=== PATIENT | male | born 1965 | race Two or more races ===

== ENCOUNTER 2025-09-21 00:16 | Inpatient (IN) | payer OTHER ==
[2025-09-21] MEDS ORDERED: Ondansetron PF 4 MG/2 ML Vial IVP PRN (01:59)
[2025-09-21] MEDS ORDERED: Dextrose 50% Abboject 50 ML SYRINGE SLOW IVP PRN (02:08)
[2025-09-21] MEDS ORDERED: Glucagon 1 MG/ML KIT IM PRN (02:08)
[2025-09-21 02:22] VITALS: BMI 42.3
[2025-09-21 03:36] LABS: #Basophils Less than 0.03 10x3/uL (0.0-0.2); #Eosinophils Less than 0.03 10x3/uL (0.0-0.7); #Monocytes 0.90 10x3/uL (0.11-0.59); #Neutrophils 7.17 10x3/uL (1.40-6.50); %Basophils 0.2 % (0.0-1.0); %Eosinophils 0.2 % (0.0-10.0); %Lymphocytes 16.7 % (21.0-51.0); %Monocytes 9.2 % (0.0-10.0); %Neutrophils 73.6 % (42.0-75.0); Hematocrit 40.0 % (42.0-52.0); Hemoglobin 13.2 g/dL (14.0-18.0); Mean Corpuscular Hemoglobin 29.8 pg (27.0-31.0); Mean Corpuscular Volume 90.3 fL (78.0-98.0); Platelet Count 185 10x3/uL (130-400); Red Blood Cell (RBC) Count 4.43 mill/uL (4.70-6.10); White Blood Cell (WBC) Count 9.75 10x3/uL (4.8-10.8)
[2025-09-21 03:56] LABS: ALT (SGPT) 151 U/L (Less than 45); AST (SGOT) 190 U/L (11-34); Albumin 3.6 g/dL (3.1-4.5); Alkaline Phosphatase 55 U/L (40-110); Anion Gap 15 mmol/L (10-20); BUN (Urea Nitrogen) 24 mg/dL (8.4-25.7); Bilirubin, Total 1.1 mg/dL (0.3-1.2); Calc. Creatinine Clearance 100 mL/min (70-130); Calcium 8.7 mg/dL (7.8-10.44); Carbon Dioxide 26 mmol/L (22-29); Chloride 104 mmol/L (98-107); Globulin 3.1 g/dL (2.4-3.5); Glucose 111 mg/dL (70-105); Potassium 4.2 mmol/L (3.5-5.1); Sodium 141 mmol/L (136-145)
[2025-09-21 05:08] LABS: Lipase 2082.0 U/L (8-78)
[2025-09-21 05:10] LABS: Cardiac Risk 3.1 (Less than 4.5); Cholesterol 138.0 mg/dl (< 200 Desired); HDL Cholesterol 45.0 mg/dL (>60 Neg Risk); LDL Cholesterol, Calculated 80.0 mg/dL; Triglycerides 64.0 mg/dL (Less than 150)
[2025-09-21 08:41] LABS: Hep A IgM AB NONREACTIVE (NonReactive); Hep A IgM S/CO 0.18 S/CO (0-0.79); Hep B Core IgM Index 0.08 S/CO (0-0.79); Hep B Surf Ag NONREACTIVE S/CO (NonReactive); Hep C IgG Ab Reflex HepC Qnt S/CO (NonReactive); Hep C Index 11.55 S/CO (0-0.79)
[2025-09-21] MEDS: Clotrimazole 1 % Cream 30 GM TUBE TOP SCH (09:20)
[2025-09-21] MEDS: Enoxaparin 40 MG (0.4 mL) SYRINGE SC SCH (09:22)
[2025-09-21] MEDS: Famotidine/PF 20 mg/2ml Vial SLOW IVP SCH (09:22)
[2025-09-21] MEDS: Famotidine 20 MG TAB PO SCH (09:22)
[2025-09-21] MEDS: Polyvinyl Alcohol 1.4%/Povidone 0.6% Opth Drops EA EYE SCH (09:22)
[2025-09-21] MEDS: Acetaminophen 325 MG TAB PO PRN (15:20)
[2025-09-21] MEDS: Ketorolac Tromethamine 30 MG (1 mL) VIAL IVP SCH (17:45)
[2025-09-22] MEDS: Senokot 8.6 MG TAB PO SCH (12:52)
[2025-09-22] MEDS: Pantoprazole 40 MG DR.TAB PO SCH (12:52)
[2025-09-23] MEDS: Furosemide 20 MG (2 mL) VIAL SLOW IVP SCH (14:53)
[2025-09-23] MEDS: Calcium Carbonate 500 MG ChewTAB PO SCH (16:44)
[2025-09-23 17:50] LABS: #Basophils 0.04 10x3/uL (0.0-0.2); #Eosinophils 0.11 10x3/uL (0.0-0.7); #Monocytes 0.81 10x3/uL (0.11-0.59); #Neutrophils 6.63 10x3/uL (1.40-6.50); %Basophils 0.4 % (0.0-1.0); %Eosinophils 1.2 % (0.0-10.0); %Lymphocytes 17.2 % (21.0-51.0); %Monocytes 8.8 % (0.0-10.0); %Neutrophils 71.9 % (42.0-75.0); Hematocrit 39.1 % (42.0-52.0); Hemoglobin 12.5 g/dL (14.0-18.0); Mean Corpuscular Hemoglobin 28.8 pg (27.0-31.0); Mean Corpuscular Volume 90.1 fL (78.0-98.0); Platelet Count 168 10x3/uL (130-400); Red Blood Cell (RBC) Count 4.34 mill/uL (4.70-6.10); White Blood Cell (WBC) Count 9.23 10x3/uL (4.8-10.8)
[2025-09-23 18:04] LABS: Anion Gap 9 mmol/L (10-20); BUN (Urea Nitrogen) 13 mg/dL (8.4-25.7); Calc. Creatinine Clearance 169 mL/min (70-130); Calcium 8.7 mg/dL (7.8-10.44); Carbon Dioxide 27 mmol/L (22-29); Chloride 107 mmol/L (98-107); Glucose 110 mg/dL (70-105); Potassium 3.6 mmol/L (3.5-5.1); Sodium 139 mmol/L (136-145)
[2025-09-24] MEDS: Senokot 8.6 MG TAB PO SCH (08:01)
[2025-09-24 09:38] LABS: Hep C PCR-Quant HCV Not Detected IU/mL (.)
[2025-09-24 12:06] VITALS: BP 163/82; TEMP 97.7
== END 2025-09-24 14:30 | DRG 439 ==
LOC: EEVIPCON 01:33 → SURG B 01:33
PROVIDERS: ADMIT Internal Medicine; ATTEND Internal Medicine
DX: K85.90 Acute pancreatitis without necrosis or infection, unspecified (principal); N17.9 Acute kidney failure, unspecified; Z68.41 Body mass index [BMI] 40.0-44.9, adult; I10 Essential (primary) hypertension; E03.9 Hypothyroidism, unspecified; E11.9 Type 2 diabetes mellitus without complications; E66.01 Morbid (severe) obesity due to excess calories; K74.00 Hepatic fibrosis, unspecified; R74.01 Elevation of levels of liver transaminase levels; Z79.890 Hormone replacement therapy; G47.33 Obstructive sleep apnea (adult) (pediatric); Z79.899 Other long term (current) drug therapy; R16.0 Hepatomegaly, not elsewhere classified; Z79.84 Long term (current) use of oral hypoglycemic drugs
CPT/HCPCS: 36415; 36416; 71045; 74177; 76705; 80048; 80053; 80061; 80074; 83690; 84478; 85025; 87522; 96374; 96375; 96376; J1308; J1650; J1885; J1940; J2270; J2405; J2470; J7030; Q9967